=== PATIENT | male | born 1980 | race Caucasian/White ===

== ENCOUNTER 2019-06-29 08:00 | Outpatient (RCR) | payer OTHER, SELFPAY ==
[2019-04-18 10:53] VITALS: BMI 61.9
[2019-06-29 07:58] VITALS: BMI 60.6
[2019-06-29 08:03] VITALS: BMI 60.6
== END 2019-07-17 23:59 | disposition home or self-care (01) ==
LOC: ANHDMC 08:00
PROVIDERS: PCP Family Medicine; Visit Provider Physician Assistant
DX: R73.09 Other abnormal glucose (principal); E66.01 Morbid (severe) obesity due to excess calories; Z71.3 Dietary counseling and surveillance
CPT/HCPCS: 97802; 97803

== ENCOUNTER → 2022-12-12 11:40 | Outpatient (CLI) | payer OTHER, SELFPAY ==
--- NOTE | ~2022-12-12 | XR_ITS ---
XR sinus min 3V DATE: 12/12/2022 13:04 INDICATION: Acute upper respiratory infection TECHNIQUE: 7 views COMPARISON: None FINDINGS: Mild rightward bowing of the nasal septum. Soft tissue swelling of the left middle and infe rior nasal turbinates. The paranasal sinuses and mastoid air cells appear normally developed and aerated. IMPRESSION: Normally developed and aerated paranasal sinuses and mastoid air cells Soft tissue swelling of the left middle and inferior nasal turbinates Reviewed, dictated and finalized at location A. IMPRESSION: Normally developed and aerated paranasal sinuses and mastoid air ce lls Soft tissue swelling of the left middle and inferior nasal turbinates
--- NOTE | ~2022-12-12 | XR_ITS ---
EXAMINATION: XR chest 2V DATE: 12/12/2022 13:04 INDICATION: Acute upper respiratory infection, unspecified. TECHNIQUE: Frontal and lateral views of the chest were obtained on 4 radiographs. COMPARISON: Chest 2 views 08/20/2015 FINDINGS: The chest demonstrates clear lungs without pneumonia, pleural effusion, or pneumothorax. Th e heart size is normal. IMPRESSION: 1. No acute cardiopulmonary disease. Reviewed, dictated and finalized at location E.
== END ==
PROVIDERS: PCP Family Medicine; Visit Provider Physician Assistant
DX: J06.9 Acute upper respiratory infection, unspecified (principal); R05.9 Cough, unspecified; R09.81 Nasal congestion; M79.89 Other specified soft tissue disorders
CPT/HCPCS: 70220; 71046

== ENCOUNTER 2023-06-11 00:30 | Day surgery (SDC) | payer OTHER, SELFPAY ==
[2023-05-28 14:07] VITALS: BMI 60.6
--- NOTE | 2023-06-09 11:10 | SUR.PREOP ---
Patient called regarding upcoming procedure. Message left on pt's voicemail regarding appointment times.
--- NOTE | 2023-06-10 18:01 | PM.HPGS ---
History of Present Illness History of Present Illness Consent: Risks, benefits, and alternatives have been discussed and questions answered. Patient agrees to proceed with procedure. Chief complaint: dysphagia,GERD,Neoplasm screening Narrative: Sorin Cuellar is a 43 year old male who has been diagnosed with laryngeal reflux previously by an ENT physician but has not had endoscopy for that. His symptoms are throat discomfort and excessive coughing in the morning usually about half or before he wakes up. He was placed on famotidine and omeprazole but that failed to curb his symptoms. He also was due for colon cancer screening. Review of Systems Review of Systems: All systems reviewed & are unremarkable except as noted in HPI and below PMFSH Past Medical History Medical History Anxiety Depression GERD (gastroesophageal reflux disease) IFG (impaired fasting glucose) Morbid obesity due to excess calories Family History Family History Mother Cerebrovascular accident Family history of diabetes mellitus in first degree relative Social History Social History Social History: Caffeine-daily Smoking status: Never smoker Alcohol intake: current Alcohol use details: rare use Substance use: never Substance use type: does not use Lack of Transportation: No Lack of Food: Never True Current Housing: I Have Housing Concerned About Future Housing: No Difficulty Paying Gas/Electric Bills: No Difficulty Paying for Meds: No Currently Unemployed: No Education: Master's Degree or Higher Difficulty w/ Childcare or Family Care: No Living arrangements: alone Occupation/Education: occupation Gender identity (if verbalized by the patient): Male Spiritual care concerns: No Meds Home Medications and Allergies Home Medications Medication Instructions Recorded Confirmed Type lorazepam 0.5 mg tablet (Ativan) 0.5 mg PO DAILY PRN Anxiety 10/27/19 06/11/23 History dextromethorphan IR 45 1 tablet PO BID 11/24/22 06/11/23 History mg-bupropion ER 105 mg biphasic tablet (Auvelity) vilazodone 10 mg tablet 10 mg PO DAILY 03/12/23 06/11/23 History losartan 25 mg tablet See Rx Instructions .Route 04/20/23 06/11/23 Rx .COMPLEX #90 tabs famotidine 20 mg tablet 20 mg PO DAILY #30 tabs 04/27/23 06/11/23 Rx omeprazole 40 mg capsule,delayed 40 mg PO DAILY #30 caps 04/27/23 06/11/23 Rx release Allergies Allergy/AdvReac Type Severity Reaction Status Date / Time Sulfa (Sulfonamide Allergy Unknown unk Verified 06/11/23 12:18 Antibiotics) sulfanilamide Allergy Unknown unk Verified 06/11/23 12:18 zolpidem Allergy Unknown unk Verified 06/11/23 12:18 Exam Const: General: alert Nutritional Appearance: obese Orientation/consciousness: patient oriented x3 Resp: Auscultation: clear to auscultation bilaterally Cardio: Rhythm: regular rhythm GI: GI Palp: Yes Soft to palpation and No Tenderness to palpation present (GI) Neuro: General: patient oriented x3 Assessment and Plan Assessment and plan (1) Colon cancer screening: Code(s): Z12.11 - Encounter for screening for malignant neoplasm of colon Status: Acute Assessment and Plan: Colonoscopy with possible biopsy or polypectomy or cautery or injection of substances. (2) GERD (gastroesophageal reflux disease): Qualifiers: Esophagitis presence: without esophagitis Qualified Code(s): K21.9 - Gastro-esophageal reflux disease without esophagitis Code(s): K21.9 - Gastro-esophageal reflux disease without esophagitis Status: Acute Assessment and Plan: EGD with possible biopsy or dilatation or cautery.
[2023-06-11 12:37] VITALS: BP 150/78; PULSE 71; RESP 22; TEMP 36.4; O2SAT 97; BMI 59.5
[2023-06-11] MEDS: LACTATED RINGERS 1,000 ML 150 ML IV CONT (12:50)
--- NOTE | 2023-06-11 12:59 | WPDANESEPPF ---
Anes - Initial Pre Proc Eval Procedure: Operation Date: 06/11/23 13:30 Proposed Procedures p Esophagogastroduodenoscopy & Screening Colonoscopy - Quinton Gutierrez MD Date/Time: 06/11/23 12:59 Surgeon: Quinton Gutierrez MD Pre Op Diagnosis: dysphagia,GERD,Neoplasm screening Patient Data Age: 43 Gender: M Height: 1.75 m Weight: 182.7 kg Last Vital Signs Temp 97.5 F L 06/11/23 12:37 Pulse 71 06/11/23 12:37 Resp 22 H 06/11/23 12:37 BP 150/78 H 06/11/23 12:37 Pulse Ox 97 06/11/23 12:37 O2 Del Method Room Air 06/11/23 12:37 Allergies Allergy/AdvReac Type Severity Reaction Status Date / Time Sulfa (Sulfonamide Allergy Unknown unk Verified 06/11/23 12:18 Antibiotics) sulfanilamide Allergy Unknown unk Verified 06/11/23 12:18 zolpidem Allergy Unknown unk Verified 06/11/23 12:18 Home Medications Medication Instructions Recorded Confirmed Type lorazepam 0.5 mg tablet (Ativan) 0.5 mg PO DAILY PRN Anxiety 10/27/19 06/11/23 History dextromethorphan IR 45 1 tablet PO BID 11/24/22 06/11/23 History mg-bupropion ER 105 mg biphasic tablet (Auvelity) vilazodone 10 mg tablet 10 mg PO DAILY 03/12/23 06/11/23 History losartan 25 mg tablet See Rx Instructions .Route 04/20/23 06/11/23 Rx .COMPLEX #90 tabs famotidine 20 mg tablet 20 mg PO DAILY #30 tabs 04/27/23 06/11/23 Rx omeprazole 40 mg capsule,delayed 40 mg PO DAILY #30 caps 04/27/23 06/11/23 Rx release Patient hx anesthesia problems: none Family hx anesthesia problems: none Results Review: All pre-operative results and documents have been reviewed as part of the pre-operative evaluation. [facility] Past Medical History Medical History Anxiety Depression GERD (gastroesophageal reflux disease) IFG (impaired fasting glucose) Morbid obesity due to excess calories Family History Family History Mother Cerebrovascular accident Family history of diabetes mellitus in first degree relative Social History Social History Social History: Caffeine-daily Smoking status: Never smoker Alcohol intake: current Alcohol use details: rare use Substance use: never Substance use type: does not use Lack of Transportation: No Lack of Food: Never True Current Housing: I Have Housing Concerned About Future Housing: No Difficulty Paying Gas/Electric Bills: No Difficulty Paying for Meds: No Currently Unemployed: No Education: Master's Degree or Higher Difficulty w/ Childcare or Family Care: No Living arrangements: alone Occupation/Education: occupation Gender identity (if verbalized by the patient): Male Spiritual care concerns: No Anes - Eval Final PreProcedure Day of Procedure 06/11/23 12:59 Patient weight: super morbidly obese Heart: regular rate and rhythm Lungs: clear to auscultation Airway: Mallampati scale class III Neurological: alert and oriented Last oral intake: >/= 8 hours ASA classification: IV Emergent: no Anesthetic plan: proceed Anesthesia type and monitoring: general GIVS and standard monitoring Results Review: All pre-operative results and documents have been reviewed as part of the pre-operative evaluation. Informed Consent: The patient's anesthetic plan and its attendant risks and benefits were discussed with the patient/family/POA. Questions were solicited and answers provided to the satisfaction of the patient/family/POA.
--- NOTE | 2023-06-11 13:02 | SUR.OPER ---
EGD start 1306 end 1307, Colonoscopy start 1314
[2023-06-11 13:28] VITALS: BP 111/72; PULSE 86; RESP 22; O2SAT 98
[2023-06-11 13:38] VITALS: BP 118/90; PULSE 87; RESP 22; O2SAT 98
[2023-06-11 13:48] VITALS: BP 127/78; PULSE 88; RESP 20; O2SAT 98
== END 2023-06-11 13:52 | disposition home or self-care (01) ==
PROVIDERS: PCP Family Medicine; Visit Provider Internal Medicine Gastroenterology
PROC: 0DJ08ZZ Inspection of Upper Intestinal Tract, Via Natural or Artificial Opening Endoscopic (ICD-10-PCS; CPT 43235; principal; 2023-06-11 13:30)
DX: Z12.11 Encounter for screening for malignant neoplasm of colon (principal); D12.8 Benign neoplasm of rectum; R13.10 Dysphagia, unspecified; K21.9 Gastro-esophageal reflux disease without esophagitis; E66.9 Obesity, unspecified; Z68.43 Body mass index [BMI] 50.0-59.9, adult
CPT/HCPCS: 43235; 45385; 88305; J2405; J2704; J3010; J7120

== ENCOUNTER 2023-09-07 08:04 | Outpatient (CLI) | payer OTHER, SELFPAY ==
--- NOTE | 2023-09-16 17:29 | P.PCNPFT_ITS ---
PFT Procedure Performed PFT Procedure Performed Spirometry with Pre/Post Bronchodilator Plethysmography (Lung Vol) Diffusing Cap (DLCO) Flow Vol Loop PFT Interpretation DOS: 09/07/2023 REQUESTING: Pretty Toney PA-C REASON FOR TESTING: Cough PULMONARY FUNCTION TESTS Results are reliable and reproducible. Repeatability of spirometry FEV1 maneuver pre and post bronchodilator is Grade A. Spirometry: The pre-bronchodilator FEV1 is 2.87 L, 68%, decreased. The pre- bronchodilator FVC is 3.52 L, 67%, decreased. The FEV1/FVC ratio is 81%, normal. After bronchodilator, the FEV1 is 2.96 L, 71%, +3% increase. The post bronchodilator FVC is 3.54 L, 67%, 1+ increase. The post bronchodilator F EV1/FVC ratio is 84%. Lung volumes: The total lung capacity is 4.84 L, 68%, decreased. The residual volume is 1.23 L, 62%. The RV/TLC is 25%, normal. Diffusion: DLCO is 24.3, 75%, lower limit of normal. The DLCO/VA is 5.25, 113%, normal. Flow volume loop: The flow volume loop is unremarkable. IMPRESSION: This study shows a mild restrictive pattern without obstruction, no response to bronchodilator, and decreased diffusion that normalizes for alveolar volume. Body mass index is 57 which may be the cause of restriction. No prior studies for comparison. Torie Faustin MD
== END 2023-09-07 08:05 | disposition home or self-care (01) ==
LOC: ANHPFT 08:04
PROVIDERS: PCP Family Medicine; Visit Provider Physician Assistant
DX: R06.09 Other forms of dyspnea (principal); R05.9 Cough, unspecified
CPT/HCPCS: 94060; 94726; 94729

== ENCOUNTER 2023-11-16 10:06 | Outpatient (CLI) | payer OTHER, SELFPAY ==
--- NOTE | ~2023-11-16 | CT_ITS ---
CT diagnostic chest wo con Ordering provider: Pretty Toney PA-C History: 43 years Male with . R05.9 - Cough, unspecified . Comparison: None. Technique: CT chest without IV contrast.Radiation reduction technique utilized. The DLP is 717.56 FINDINGS: VISUALIZED THORACIC INLET: Normal. MEDIASTINUM: Aorta/coronary arteries: Normal Heart/other: The heart is not enlarged. Lymph nodes: No mediastinal or hilar adenopathy. LUNGS: No pulmonary nodules or masses. No infiltrates or effusions. No pneumothorax. VISUALIZED UPPER ABDOMEN: the visualized upper abdomen is normal. MUSCULOSKELETAL: Soft tissues: The superficial soft tissues are normal. Bones: Age appropriate degenerative changes of the spine. IMPRESSION: 1. No acute cardiopulmonary pathology. Reviewed, dictated and finalized at location A.
== END 2023-11-16 10:07 ==
LOC: MICIMG 10:07
PROVIDERS: PCP Family Medicine; Visit Provider Physician Assistant
DX: J98.4 Other disorders of lung (principal); R05.9 Cough, unspecified
CPT/HCPCS: 71250